=== PATIENT | female | born 1955 | race Caucasian/White ===

== ENCOUNTER 2018-07-22 17:45 | Inpatient (IN) | payer MEDICARE, MEDICAID ==
--- NOTE | 2018-07-22 18:40 | ED Physician Chart ---
ED Chief Complaint/HPI - Patient Information Date Seen:: 07/22/18 Time Seen:: 18:00 Chief Complaint:: Depression History of Present Illness:: onset x 2 days of depression and lethargy; no report of SIs, trauma, H/, neck pain, chest pain, dyspnea, abd. pain, A/N/V/D/C, fever, chills, or urinary s/s Allergies:: Allergies Allergy/AdvReac Type Severity Reaction Status Date / Time erythromycin base Allergy Verified 07/22/18 18:18 Vitals:: Vital Signs - 8 hr 07/22/18 18:00 Temp 97 F HR 105 RR 18 BP 130/64 O2 Sat % 96 Historian:: Patient Review:: Nurse's Note Reviewed, Old Chart Reviewed <Tomi Lindo - Last Filed: 07/22/18 18:33> - Patient Information Allergies:: Allergies Allergy/AdvReac Type Severity Reaction Status Date / Time erythromycin base Allergy Verified 07/22/18 18:18 Vitals:: Vital Signs - 8 hr 07/22/18 18:00 Temp 97 F HR 105 RR 18 BP 130/64 O2 Sat % 96 <Jennifer Canseco - Last Filed: 07/23/18 08:41> ED Review of Systems - Review of Systems General/Constitutional: No fever, No chills, No weight loss, No weakness, No diaphoresis, No edema, No loss of appetite Skin: No skin lesions, No rash, No bruising Head: No headache, No light-headedness Eyes: No loss of vision, No pain, No diplopia ENT: No earache, No nasal drainage, No sore throat, No tinnitus Neck: No neck pain, No swelling, No thyromegaly, No stiffness, No mass noted Cardio Vascular: No chest pain, No palpitations, No PND, No orthopnea, No edema Pulmonary: No SOB, No cough, No sputum, No wheezing GI: No nausea, No vomiting, No diarrhea, No pain, No melena, No hematochezia, No constipation, No hematemesis G/U: No dysuria, No frequency, No hematuria, No nacturia 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 discharge, No abnormal vaginal bleed, No contraction Musculoskeletal: No bone or joint pain, No back pain, No muscle pain Endocrine: No polyuria, No polydipsia Psychiatric: Prior psych history, Depression, No anxiety, No suicidal ideation, No homicidal ideation, No auditory hallucination, No visual hallucination Hematopoietic: No bruising, No lymphadenopathy Allergic/Immuno: No urticaria, No angioedema Neurological: No syncope, No focal symptoms, No weakness, No paresthesia, No headache, No seizure, No dizziness, No confusion, No vertigo <Tomi Lindo - Last Filed: 07/22/18 18:33> ED Past Medical History - Past Medical History Obtainable: Yes Past Medical History: HTN Family History: HTN Social History: Non Smoker, No Alcohol, No Drug Use, Surgical History: None Psychiatricy History: Depression Medication: Reviewed <LindsayTomi ann - Last Filed: 07/22/18 18:33> Family Medical History - Family Member Mother History Unknown: Yes <HarleenJennifer - Last Filed: 07/23/18 08:41> ED Physical Exam - Physical Examination General/Constitutional: Awake, Well-developed, well-nourished, Alert, No distress, GCS 15, Non-toxic appearing, Ambulatory Head: Atraumatic Eyes: Lids, conjuctiva normal, PERRL, EOMI Skin: Nl inspection, No rash, No skin lesions, No ecchymosis, Well hydrated, No lymphadenopathy ENMT: External ears, nose nl, TM canals nl, Nasal exam nl, Lips, teeth, gums nl , Oropharynx nl, Tonsils nl Neck: Nontender, Full ROM w/o pain, No JVD, No nuchal rigidity, No bruit, No mass, No stridor Respiratory: Nl effort/Exclusion, Clear to Auscultation, No Wheeze/Rhonchi/Rales Cardio Vascular: RRR, No murmur, gallop, rubs, NL S1 S2, Carotid/Femoral/Distal pulses equal bilaterally GI: No tenderness/rebounding/guarding, No organomegaly, No hernia, Normal BS's, Nondistended, No mass/bruits, No McBurney tenderness : No CVA tenderness Extremities: No tenderness or effusion, Full ROM, normal strength in all extremities, No edema, Normal digits & nails Neuro/Psych: Alert/oriented, DTR's symmetric, Normal sensory exam, Normal motor strength, Judgement/insight normal, Mood normal, Normal gait, No focal deficits Other Neuro/Psych comments:: MSE: + Psychomotor Retardation; no SIs; Mood/Affect: Labile Misc: Normal back, No paraspinal tenderness <Tomi Lindo - Last Filed: 07/22/18 18:33> ED Labs/Radiology/EKG Results - Lab Results Results: Laboratory Tests 07/22/18 07/22/18 07/22/18 17:10 17:10 17:10 WBC 9.1 RBC 4.81 Hgb 14.7 Hct 44.1 MCV 91.7 MCH 30.5 MCHC Differential 33.3 RDW 13.9 Plt Count 237 MPV 10.4 Neutrophils % 61.5 Lymphocytes % 27.6 Monocytes % 7.3 Eosinophils % 2.6 Basophils % 1.0 Sodium 135 L Potassium 4.2 Chloride 99 Carbon Dioxide 23.8 Anion Gap 16.4 H BUN 19 Creatinine 0.8 Est GFR ( Amer) > 60.0 Est GFR (Non-Af Amer) > 60.0 BUN/Creatinine Ratio 23.8 Glucose 173 H Calcium 9.0 Total Bilirubin 0.7 AST 14 ALT 7 Alkaline Phosphatase 117 H Troponin I 0.01 Total Protein 6.9 Albumin 3.5 L Globulin 3.4 Albumin/Globulin Ratio 1.0 Triglycerides 161 H Cholesterol 206 H LDL Cholesterol Direct 133 HDL Cholesterol 65 Salicylates < 25.0 L Acetaminophen < 10.0 L Ethyl Alcohol < 10 <Jennifer Canseco - Last Filed: 07/23/18 08:41> ED Septic Shock - . Is Septic Shock (SBP<90, OR Lactate>4 mmol\L) present?: No - <6hrs of presentation: Vital Signs: Vital Signs - 8 hr 07/22/18 18:00 Temp 97 F HR 105 RR 18 BP 130/64 O2 Sat % 96 <Tomi Lindo - Last Filed: 07/22/18 18:33> - . Is Septic Shock (SBP<90, OR Lactate>4 mmol\L) present?: No - <6hrs of presentation: Vital Signs: Vital Signs - 8 hr 07/22/18 18:00 Temp 97 F HR 105 RR 18 BP 130/64 O2 Sat % 96 <Jennifer Canseco - Last Filed: 07/23/18 08:41> ED Reassessment (Disposition) - Reassessment Reassessment Condition:: Improved - Diagnosis Diagnosis:: Depression; Medical Clearance <Tomi Lindo - Last Filed: 07/22/18 18:33> - Reassessment Reassessment:: Admit to [facility] for further evaluation and management. Reassessment Condition:: Improved - Patient Disposition Discharge/Transfer:: [facility] w/in this hosp Admitting Medical Physician:: Allen Escobedo Admitting Psych Physician:: Esteban Escobar <Jennifer Canseco - Last Filed: 07/23/18 08:41>
[2018-07-22 19:25] LABS: % EOSINOPHILS 2.6 % (0.0-5.0); % LYMPHOCYTES 27.6 % (20.0-50.0); % MONOCYTES 7.3 % (2.0-10.0); % NEUTROPHILS 61.5 % (40.0-80.0); BASOPHILE ABSOLUTE 0.1 Th/cumm (0-0.2); EOSINOPHILE ABSOLUTE 0.2 Th/cmm (0.1-0.4); HEMATOCRIT 44.1 % (41.0-60); HEMOGLOBIN 14.7 gm/dL (12-16); LYMPHOCYTE ABSOLUTE 2.5 Th/cmm (1.5-3.0); MEAN CELL VOLUME 91.7 fl (81-100); MEAN CORPUSCULAR HEMOGLOBIN 30.5 pg (27.0-31.0); MEAN CORPUSCULAR HGB CONC 33.3 pg (28.0-36.0); MEAN PLATELET VOLUME 10.4 fl; MONOCYTE ABSOLUTE 0.7 Th/cmm (0.3-1.0); NEUTROPHILE ABSOLUTE 5.6 Th/cmm (1.8-8.0); PLATELET COUNT 237 Th/cmm (150-400); RED BLOOD COUNT 4.81 Mil/cmm (3.80-5.10); RED CELL DISTRIBUTION WIDTH 13.9 % (11.5-20.0); WHITE BLOOD COUNT 9.1 Th/cmm (4.8-10.8)
[2018-07-22 19:51] LABS: ACETAMINOPHEN < 10.0 ug/mL (10.0-30.0); ALBUMIN 3.5 gm/dL (3.7-5.3); ALKALINE PHOSPHATASE 117 U/L (34-104); ANION GAP 16.4 (7.0-16.0); BILIRUBIN,TOTAL 0.7 mg/dL (0.3-1.0); BUN - UREA NITROGEN 19 mg/dL (7-25); CARBON DIOXIDE 23.8 mEq/L (21.0-31.0); CHLORIDE 99 mEq/L (98-107); CHOLESTEROL 206 mg/dL (<200); CREATININE - SERUM 0.8 mg/dL (0.6-1.2); GFR AFRICAN-AMERICAN > 60.0 ml/min (>90); GFR NON AFRICAN-AMERICAN > 60.0 ml/min; GLUCOSE 173 mg/dL (70-105); HDL -HIGH DENSITY LIPOPROTEIN 65 mg/dL (23-92); POTASSIUM SERUM 4.2 mEq/L (3.5-5.1); SGOT 14 U/L (13-39); SGPT/ALT 7 U/L (7-52); SODIUM SERUM 135 mEq/L (136-145); TOTAL PROTEIN,SERUM 6.9 gm/dL (6.0-8.3); TRIGLYCERIDES 161 mg/dL (<150)
[2018-07-22 19:54] LABS: SALICYLATES (ASPIRIN) < 25.0 mg/L (30.0-100.0)
[2018-07-22] MEDS ORDERED: Maalox 30 mL Cup PO PRN (21:00)
[2018-07-22 22:22] VITALS: BP 113/63
[2018-07-22] MEDS ORDERED: LEUCOVORIN CALCIUM PO SCH (22:45)
[2018-07-22] MEDS ORDERED: ABATACEPT 125 MG SQ SCH (22:45)
[2018-07-23] MEDS: Hydrocodone/APAP 10 mg/325 mg Tab PO PRN ×2 (01:24→21:43)
--- NOTE | 2018-07-23 04:57 | Psychiatric Evaluation ---
DATE OF SERVICE: 07/22/2018 IDENTIFYING DATA: The patient is a 63-year-old resident of [facility]. Information obtained by directly interviewing the patient as well as reviewing the admission papers and they are reliable. JUSTIFICATION OF HOSPITALIZATION: The patient is admitted on a voluntary basis in view of her acute depression. CHIEF COMPLAINT: "I am depressed, but I don't know why I am here." HISTORY OF PRESENT ILLNESS: This is the first psychiatric hospitalization to [facility] for this patient who is reported to have been feeling depressed since the loss of pulse. The patient is reporting that she is not able to sleep, has been having poor coping skills and is feeling frustrated. The patient at this time is noted to be morbidly obese and is not able to move. The patient is also feeling extremely frustrated with this poor mobility. PAST PSYCHIATRIC HISTORY: Details are not known. MEDICAL HISTORY: Physical examination is requested to be done by Dr. Escobedo. SUBSTANCE ABUSE HISTORY: None. PHYSICAL OR SEXUAL ABUSE HISTORY: None. LEGAL PROBLEMS: None at this time. SOCIAL HISTORY: The patient is a resident of the detention facility. MENTAL STATUS EXAMINATION: The patient is a 63-year-old morbidly obese, superficially cooperative. Mood is noted to be depressed. Affect is constricted. Insight and judgment are noted to be very impaired. Impulse control is noted to be poor. Coping skills are noted to be poor. The patient is alert and oriented x 3. The patient did not presenting with any suicidal ideation, but the patient has feelings of helplessness and hopelessness. No psychotic symptoms are noted at this time. The patient is not that keen on being in here, but she states ____ see whether, however, she is going to get any better in here. DIAGNOSTIC IMPRESSION: AXIS I: Major depressive disorder, first episode and moderate. AXIS II: None. AXIS III: As per Dr. Escobedo. IMMEDIATE TREATMENT PLAN: The patient is going to be observed on inpatient unit providing supportive psychotherapy. The patient is going to be closely monitored and encouraged to participate in the groups. Once stabilized, the patient is going to be discharged. While in the hospital, the patient is going to be placed on the low dose of the antidepressant medication, Lexapro and the patient is going to be followed up. JOB# [id number]
--- NOTE | 2018-07-23 06:28 | History and Physical ---
History of Present Illness - HPI Chief Complaint: Psychosis HPI: 63 y/o female who presents to [facility] for 2 day onset of depression and was subsequently transferred to the ER for further evaluation and treatment. While in the ER patient had initial labwork which revealed the following WBC 9.1 H/H 14.7/44.1 plat 237K Na 135 K 4.2 Bun/Cr 19/0.8 glu 173 AST 14 ALT 7 Alk 117 Chol 206 tri 161 LDL 133 HDL 65 PMH HTN, depression Patient was subsequently admitted for further evaluation and treatment. Vital Signs: Last Vital Signs Temp 96.4 F 07/22/18 21:29 Pulse 85 07/22/18 21:29 Resp 19 07/22/18 21:29 BP 113/63 07/22/18 22:22 Pulse Ox 95 07/22/18 21:29 Past Medical History Cardiovascular: Report: HTN Pulmonary: Report: No Pertinent Hx NATIONAL EXPANSION RECRUITER: Report: No Pertinent Hx GI: Report: No Pertinent Hx Psych: Report: Depression Musculoskeletal: Report: No Pertinent Hx, No Pain Rheumatologic: Report: No pertinent Hx Infectious Disease: Report: No Pertinent Hx Renal/: Report: Chronic Renal Insuff Endocrine: Report: Diabetes Dermatology: Report: No Pertinent Hx Other History: gout - Past Surgical History Past Surgical History: No pertinent Hx Family Medical History - Family Member Mother History Unknown: Yes Ethnicity: Unknown Living Status: Unknown Hx Family Cancer: (unknown) Hx Family Coronary Artery Disease: (unknown) Hx Family Congestive Heart Failure: (unknown) Hx Family Hypertension: (unknown) Hx Family Stroke: (unknown) Hx Family Diabetes: (unknown) Hx Family Seizures: (unknown) Hx Family Dementia: (unknown) Hx Family AIDS: (unknown) Hx Family COPD: (unknown) Hx Family Hepatitis: (unknown) Hx Family Psychiatric Problems: (unknown) Hx Family Tuberculosis: (unknown) Social History Smoke: No Alcohol: None Drugs: None Lives: Skilled Nursing - Medications Home Medications: Home Medication Medication Instructions Recorded Type Abatacept [Orencia Clickject] 125 mg SQ QTHUR 07/22/18 History Allopurinol 1 mg PO BID 07/22/18 History Bisacodyl [Dulcolax 10 Mg Supp] 1 supp RC DAILY PRN 07/22/18 History Bumetanide 1 mg PO BID 07/22/18 History Calcium Carbonate 1 tab PO DAILY 07/22/18 History Cholecalciferol (Vit D3) [Vitamin 2 tab PO DAILY 07/22/18 History D3] Folic Acid 1 mg PO DAILY 07/22/18 History Hydrocodone/Acetaminophen 1 tab PO Q6HR PRN 07/22/18 History [Hydrocodone-Acetamin 10-325 mg] Insulin Glargine,Hum.rec.anlog 30 units SQ HS 07/22/18 History [Lantus Solostar] Leucovorin Calcium 1 tab PO QTHUR 07/22/18 History Magnesium Hydroxide [Milk of 30 ml PO DAILY 07/22/18 History Magnesia] Methotrexate [Methotrexate*] 6 tab PO QTHUR 07/22/18 History Metoclopramide HCl 1 tab PO DAILY 07/22/18 History Metoprolol Tartrate 25 mg PO BID 07/22/18 History Potassium Chloride 20 meq PO DAILY 07/22/18 History Sennosides A and B [Senna] 2 tab PO HS 07/22/18 History - Allergies Allergies/Adverse Reactions: Allergies Allergy/AdvReac Type Severity Reaction Status Date / Time erythromycin base Allergy Verified 07/22/18 18:18 Review of Systems - Review of Systems Constitutional: Report: No Significant Eyes: Report: No Significant ENT: Report: No Significant Respiratory: Report: No Significant Cardiovascular: Report: No Significant Gastrointestinal: Report: No Significant Genitourinary: Report: No Significant Musculoskeletal: Report: No Significant Skin: Report: No Significant Neurological: Report: Confusion - Lab Results All Lab Results last 24 hours: Laboratory Results - last 24 hr 07/22/18 07/22/18 07/22/18 17:10 17:10 17:10 WBC 9.1 RBC 4.81 Hgb 14.7 Hct 44.1 MCV 91.7 MCH 30.5 MCHC Differential 33.3 RDW 13.9 Plt Count 237 MPV 10.4 Neutrophils % 61.5 Lymphocytes % 27.6 Monocytes % 7.3 Eosinophils % 2.6 Basophils % 1.0 Sodium 135 L Potassium 4.2 Chloride 99 Carbon Dioxide 23.8 Anion Gap 16.4 H BUN 19 Creatinine 0.8 Est GFR ( Amer) > 60.0 Est GFR (Non-Af Amer) > 60.0 BUN/Creatinine Ratio 23.8 Glucose 173 H Calcium 9.0 Total Bilirubin 0.7 AST 14 ALT 7 Alkaline Phosphatase 117 H Troponin I 0.01 Total Protein 6.9 Albumin 3.5 L Globulin 3.4 Albumin/Globulin Ratio 1.0 Triglycerides 161 H Cholesterol 206 H LDL Cholesterol Direct 133 HDL Cholesterol 65 Salicylates < 25.0 L Acetaminophen < 10.0 L Ethyl Alcohol < 10 - Assessment Assessment: psychosis HTN DM gout - Plan Plan: admit to [facility] continue home meds sliding scale index
[2018-07-23] MEDS: INSULIN ASPART SLIDING SCALE 100 UNITS/ML UNIT SUBQ SCH ×4 (07:55→21:47)
[2018-07-23] MEDS: Magnesium Hydroxide (MOM) 30 mL UDC PO SCH (08:19)
[2018-07-23] MEDS: Multivitamin Tab PO SCH (08:23)
[2018-07-23] MEDS: Potassium Chloride 20 mEq ER Tab PO SCH (08:23)
--- NOTE | 2018-07-23 21:35 | Consultation ---
DATE OF CONSULTATION: 07/23/2018 REFERRING PHYSICIAN: Analia Skelton M.D. TYPE OF CONSULTATION: Psychology. HISTORY OF PRESENT ILLNESS: The patient is a 63-year-old female. The patient is a resident of [facility]. The following is by record review and by the patient's self report. The patient is being admitted due to acute depression. Upon interview, the patient states that she feels very depressed, but does not understand why she is being hospitalized. The staff at the patient's facility report that the patient had been complaining of feeling depressed and that there was a possible loss either of a family member or someone close to her. This needs further evaluation. The patient states that she feels frustrated. She denied any suicidal ideation, plan, or intention at the time of this clinical interview. PAST MEDICAL HISTORY: Please see history and physical by Dr. Escobedo. PAST PSYCHIATRIC HISTORY: Records are unavailable. Details are unknown. SUBSTANCE ABUSE HISTORY: The patient denied any history of alcohol, tobacco, or illicit drug use. PSYCHOSOCIAL HISTORY: The patient did not answer questions about occupational or educational history or evangelical affiliation. The patient denied any history of physical or sexual abuse. The patient denies any current legal problems. The patient did not answer the questions about family members or friends or others involved in her care. MENTAL STATUS EXAMINATION: The patient appears to be her stated age. The patient is morbidly obese. Attitude is superficially cooperative. Eye contact is poor. Speech is slow and delayed. Mood is depressed. Affect is constricted and mood congruent. Thought process shows to be depressogenic. The patient denied any auditory or visual hallucinations or delusions. There are no signs or symptoms of any psychotic process. The patient denied any suicidal ideation, plan, or intention. The patient's behavior has been poorly responsive to staff direction. Impulse control is inadequate. Concentration is fair to poor. Sensorium is alert and oriented to person and place. The patient did indicate feelings of helplessness and hopelessness. The patient's memory seems to be intact, but she did not participate in the assessment. The patient did not participate in the interpretation of proverbs. Insight is poor. Judgement is compromised. DIAGNOSTIC IMPRESSION: AXIS I: Major depressive disorder, first episode, moderate. AXIS II: None. AXIS III: Per Dr. Escobedo. TREATMENT PLAN: The patient has been seen by Dr. Skelton for psychiatric evaluation and for the management of the patient's psychotropic medications. We will provide supportive psychotherapy to include cognitive behavioral therapy to reduce the patient's depression. We will encourage the patient to disclose and verbalize her concerns. We will encourage the patient to verbally contract for safety. We will provide motivational enhancement for compliance with care as well as coping strategies for phase of life issues. We will provide bereavement therapy if this intervention is appropriate and needed. Thank you, Dr. Skelton, for this consult and the opportunity to participate in this patient's care. JOB# [id number] KADI
[2018-07-23] MEDS: Insulin Detemir 100 units/mL 10mL Vial SUBQ SCH (21:45)
--- NOTE | 2018-07-24 02:30 | Progress Notes ---
DATE: 07/23/2018 SUBJECTIVE: Staff was spoken to. The patient is interviewed. Mood is noted to be irritable. Affect is constricted. The patient is stating that she is frustrated. The patient is stating that she was hoping that she is going to be getting to the hospital, but on the other hand, she had to bring in the Psychiatric Unit. The patient coping skills are noted to be very poor. The patient is stating that she is fully aware that she is overweight and she states that she needs some therapy and she needs to be given a shower and the patient has claiming that she has been getting the proper care at the facility where she has been and then she is insisting that we need to get the patient back to the facility rather than keeping her in a Psychiatric Unit. The patient is stating that she is no need for her to be in here. ASSESSMENT: The patient is getting easily irritable, angry. PLAN: To continue the patient with the supportive therapy and followup. [facility]# [id number]
--- NOTE | 2018-07-24 06:31 | General Progress Note ---
Subjective - Review of Systems Service Date: 07/24/18 Subjective: Patient is awake, alert, no acute distress VS T 98.2 P 94 BP 128/65 R 20 Objective - Results Result Diagrams: 07/22/18 17:10 07/22/18 17:10 Recent Labs: Laboratory Last Values WBC 9.1 Th/cmm (4.8-10.8) 07/22/18 17:10 RBC 4.81 Mil/cmm (3.80-5.10) 07/22/18 17:10 Hgb 14.7 gm/dL (12-16) 07/22/18 17:10 Hct 44.1 % (41.0-60) 07/22/18 17:10 MCV 91.7 fl (81-100) 07/22/18 17:10 MCH 30.5 pg (27.0-31.0) 07/22/18 17:10 MCHC Differential 33.3 pg (28.0-36.0) 07/22/18 17:10 RDW 13.9 % (11.5-20.0) 07/22/18 17:10 Plt Count 237 Th/cmm (150-400) 07/22/18 17:10 MPV 10.4 fl 07/22/18 17:10 Neutrophils % 61.5 % (40.0-80.0) 07/22/18 17:10 Lymphocytes % 27.6 % (20.0-50.0) 07/22/18 17:10 Monocytes % 7.3 % (2.0-10.0) 07/22/18 17:10 Eosinophils % 2.6 % (0.0-5.0) 07/22/18 17:10 Basophils % 1.0 % (0.0-2.0) 07/22/18 17:10 Sodium 135 mEq/L (136-145) L 07/22/18 17:10 Potassium 4.2 mEq/L (3.5-5.1) 07/22/18 17:10 Chloride 99 mEq/L (98-107) 07/22/18 17:10 Carbon Dioxide 23.8 mEq/L (21.0-31.0) 07/22/18 17:10 Anion Gap 16.4 (7.0-16.0) H 07/22/18 17:10 BUN 19 mg/dL (7-25) 07/22/18 17:10 Creatinine 0.8 mg/dL (0.6-1.2) 07/22/18 17:10 Est GFR ( Amer) > 60.0 ml/min (>90) 07/22/18 17:10 Est GFR (Non-Af Amer) > 60.0 ml/min 07/22/18 17:10 BUN/Creatinine Ratio 23.8 07/22/18 17:10 Glucose 173 mg/dL (70-105) H 07/22/18 17:10 POC Glucose 251 MG/DL (70 - 105) H 07/23/18 20:10 Uric Acid 5.6 mg/dL (2.3-6.6) 07/23/18 08:00 Calcium 9.0 mg/dL (8.6-10.3) 07/22/18 17:10 Total Bilirubin 0.7 mg/dL (0.3-1.0) 07/22/18 17:10 AST 14 U/L (13-39) 07/22/18 17:10 ALT 7 U/L (7-52) 07/22/18 17:10 Alkaline Phosphatase 117 U/L (34-104) H 07/22/18 17:10 Troponin I 0.01 ng/mL (0.01-0.05) 07/22/18 17:10 Total Protein 6.9 gm/dL (6.0-8.3) 07/22/18 17:10 Albumin 3.5 gm/dL (3.7-5.3) L 07/22/18 17:10 Globulin 3.4 gm/dL 07/22/18 17:10 Albumin/Globulin Ratio 1.0 (1.0-1.8) 07/22/18 17:10 Triglycerides 161 mg/dL (<150) H 07/22/18 17:10 Cholesterol 206 mg/dL (<200) H 07/22/18 17:10 LDL Cholesterol Direct 133 mg/dL (75-193) 07/22/18 17:10 HDL Cholesterol 65 mg/dL (23-92) 07/22/18 17:10 TSH 4.22 uIU/ml (0.34-5.60) 07/23/18 08:00 Salicylates < 25.0 mg/L (30.0-100.0) L 07/22/18 17:10 Acetaminophen < 10.0 ug/mL (10.0-30.0) L 07/22/18 17:10 Ethyl Alcohol < 10 mg/dL (0-10) 07/22/18 17:10 - Physical Exam Vitals and I&O: Vital Signs Temp 98.2 F 07/23/18 14:00 Pulse 94 07/23/18 14:00 Resp 20 07/23/18 14:00 BP 128/65 07/23/18 14:00 Pulse Ox 97 07/23/18 14:00 Intake & Output 07/23/18 07/23/18 07/24/18 06:59 18:59 06:59 Intake Total 120 Balance 120 Intake: Oral 120 Other: # Voids 3 Active Medications: Current Medications Acetaminophen (Tylenol) 650 mg PO Q4HR PRN PRN Reason: Mild Pain / Temp above 100 Stop: 09/20/18 20:59 Acetaminophen/Hydrocodone Bitart (Holden 10 Mg/325 Mg) 1 tab PO Q6HR PRN PRN Reason: Pain (Moderate) Stop: 09/20/18 22:33 Last Admin: 07/23/18 21:43 Dose: 1 tab Al Hydrox/Mg Hydrox/Simethicone (Maalox) 30 ml PO Q4HR PRN PRN Reason: GI DISTRESS Stop: 09/20/18 20:59 Allopurinol (Zyloprim) 100 mg PO BID [facility] Stop: 09/21/18 08:59 Last Admin: 07/23/18 16:43 Dose: 100 mg Bisacodyl (Dulcolax 10 Mg Supp) 10 mg RC DAILY PRN PRN Reason: Constipation Stop: 09/20/18 22:33 Bumetanide (Bumex) 1 mg PO BID [facility] Stop: 09/21/18 08:59 Last Admin: 07/23/18 16:43 Dose: 1 mg Calcium Carbonate (Os-Justin) 500 mg PO DAILY [facility] Stop: 09/21/18 08:59 Last Admin: 07/23/18 08:24 Dose: 500 mg Folic Acid (Folate) 1 mg PO DAILY [facility] Stop: 09/21/18 08:59 Last Admin: 07/23/18 08:23 Dose: 1 mg Insulin Aspart (Novolog Insulin Sliding Scale) 0 units SUBQ ACHS [facility]; Protocol Stop: 09/21/18 07:29 Last Admin: 07/23/18 21:47 Dose: 6 units Insulin Detemir (Levemir Insulin) 30 units SUBQ HS [facility] Stop: 09/21/18 20:59 Last Admin: 07/23/18 21:45 Dose: 30 units Lorazepam (Ativan) 0.5 mg PO BID PRN; Protocol PRN Reason: Agitation Stop: 09/20/18 21:11 Magnesium Hydroxide (Milk Of Magnesia) 30 ml PO DAILY [facility] Stop: 09/21/18 08:59 Last Admin: 07/23/18 08:19 Dose: 30 ml Methotrexate (Methotrexate) 15 mg PO QTHUR [facility]; Protocol Stop: 09/22/18 08:59 Metoclopramide HCl (Reglan) 10 mg PO DAILY [facility] Stop: 09/21/18 08:59 Last Admin: 07/23/18 08:23 Dose: 10 mg Metoprolol Tartrate (Lopressor) 25 mg PO BID [facility] Stop: 09/21/18 08:59 Last Admin: 07/23/18 16:44 Dose: Not Given Miscellaneous (Abatacept [Orencia Clickject]) 125 mg SQ QTHUR [facility] Stop: 09/20/18 22:44 Miscellaneous (Leucovorin Calcium [Leucovorin Calcium]) 1 tab PO QTHUR [facility] Stop: 09/20/18 22:44 Multivitamins/Vitamin C (Theragran) 1 tab PO DAILY [facility] Stop: 09/21/18 08:59 Last Admin: 07/23/18 08:23 Dose: 1 tab Potassium Chloride (Klor-Con) 20 meq PO DAILY [facility] Stop: 09/21/18 08:59 Last Admin: 07/23/18 08:23 Dose: 20 meq Senna (Senna) 8.6 mg PO HS [facility] Stop: 09/21/18 20:59 Last Admin: 07/23/18 21:42 Dose: 8.6 mg Vitamin D (Vitamin D3) 2,000 iu PO DAILY [facility] Stop: 09/21/18 08:59 Zolpidem Tartrate (Ambien) 5 mg PO HS PRN PRN Reason: Insomnia Stop: 09/20/18 21:12 General: Alert, No acute distress HEENT: Atraumatic, PERRLA, EOMI Neck: Supple Cardiovascular: Regular rate, Normal S1, Normal S2 Lungs: Clear to auscultation Abdomen: Bowel sounds Extremities: no Clubbing, no Cyanosis, no Edema Assessment/Plan - Assessment Assessment: psychosis HTN DM gout CKD 3 RA CHF - Plan Plan: admit to [facility] continue home meds sliding scale index
[2018-07-24] MEDS: INSULIN ASPART SLIDING SCALE 100 UNITS/ML UNIT SUBQ SCH ×4 (06:57→20:56)
[2018-07-24] MEDS: Vitamin D3 2,000 IU SGL PO SCH (09:10)
[2018-07-24] MEDS: Potassium Chloride 20 mEq ER Tab PO SCH (09:10)
[2018-07-24] MEDS: Multivitamin Tab PO SCH (09:10)
[2018-07-24] MEDS: Magnesium Hydroxide (MOM) 30 mL UDC PO SCH (09:11)
[2018-07-24] MEDS: Hydrocodone/APAP 10 mg/325 mg Tab PO PRN (13:23)
[2018-07-24] MEDS: Insulin Detemir 100 units/mL 10mL Vial SUBQ SCH (20:56)
--- NOTE | 2018-07-25 02:31 | Progress Notes ---
DATE: 07/24/2018 SUBJECTIVE: Staff was spoken to. The patient is interviewed. Mood is noted to be depressed. Affect is constricted. The patient is getting frustrated. The patient is stating that she could not figure it out why she has to be here in this hospital and when I mentioned to her that she is going to go to the hospital, she was expecting to go to a medical hospital and she states that she does not belong in the Psychiatric Unit because she is not getting any help in here. The patient is getting easily frustrated at this time. No side effects to any of the medications are noted. In view of the patient's poor coping skills, it is decided to add low dose of the Lexapro to see if it is going to be helping the patient to cope with the stress at this time. ASSESSMENT: The patient is getting easily frustrated. PLAN: To add the patient with 5 mg of the Lexapro and encouraged the patient to verbalize the concerns rather than to act out. JOB# [id number]
--- NOTE | 2018-07-25 06:02 | General Progress Note ---
Subjective - Review of Systems Service Date: 07/25/18 Subjective: Patient is awake, alert, no acute distress VS T 98.2 P 87 BP 111/53 R 18 Objective - Results Result Diagrams: 07/22/18 17:10 07/22/18 17:10 Recent Labs: Laboratory Last Values WBC 9.1 Th/cmm (4.8-10.8) 07/22/18 17:10 RBC 4.81 Mil/cmm (3.80-5.10) 07/22/18 17:10 Hgb 14.7 gm/dL (12-16) 07/22/18 17:10 Hct 44.1 % (41.0-60) 07/22/18 17:10 MCV 91.7 fl (81-100) 07/22/18 17:10 MCH 30.5 pg (27.0-31.0) 07/22/18 17:10 MCHC Differential 33.3 pg (28.0-36.0) 07/22/18 17:10 RDW 13.9 % (11.5-20.0) 07/22/18 17:10 Plt Count 237 Th/cmm (150-400) 07/22/18 17:10 MPV 10.4 fl 07/22/18 17:10 Neutrophils % 61.5 % (40.0-80.0) 07/22/18 17:10 Lymphocytes % 27.6 % (20.0-50.0) 07/22/18 17:10 Monocytes % 7.3 % (2.0-10.0) 07/22/18 17:10 Eosinophils % 2.6 % (0.0-5.0) 07/22/18 17:10 Basophils % 1.0 % (0.0-2.0) 07/22/18 17:10 Sodium 135 mEq/L (136-145) L 07/22/18 17:10 Potassium 4.2 mEq/L (3.5-5.1) 07/22/18 17:10 Chloride 99 mEq/L (98-107) 07/22/18 17:10 Carbon Dioxide 23.8 mEq/L (21.0-31.0) 07/22/18 17:10 Anion Gap 16.4 (7.0-16.0) H 07/22/18 17:10 BUN 19 mg/dL (7-25) 07/22/18 17:10 Creatinine 0.8 mg/dL (0.6-1.2) 07/22/18 17:10 Est GFR ( Amer) > 60.0 ml/min (>90) 07/22/18 17:10 Est GFR (Non-Af Amer) > 60.0 ml/min 07/22/18 17:10 BUN/Creatinine Ratio 23.8 07/22/18 17:10 Glucose 173 mg/dL (70-105) H 07/22/18 17:10 POC Glucose 210 MG/DL (70 - 105) H 07/24/18 20:05 Uric Acid 5.6 mg/dL (2.3-6.6) 07/23/18 08:00 Calcium 9.0 mg/dL (8.6-10.3) 07/22/18 17:10 Total Bilirubin 0.7 mg/dL (0.3-1.0) 07/22/18 17:10 AST 14 U/L (13-39) 07/22/18 17:10 ALT 7 U/L (7-52) 07/22/18 17:10 Alkaline Phosphatase 117 U/L (34-104) H 07/22/18 17:10 Troponin I 0.01 ng/mL (0.01-0.05) 07/22/18 17:10 Total Protein 6.9 gm/dL (6.0-8.3) 07/22/18 17:10 Albumin 3.5 gm/dL (3.7-5.3) L 07/22/18 17:10 Globulin 3.4 gm/dL 07/22/18 17:10 Albumin/Globulin Ratio 1.0 (1.0-1.8) 07/22/18 17:10 Triglycerides 161 mg/dL (<150) H 07/22/18 17:10 Cholesterol 206 mg/dL (<200) H 07/22/18 17:10 LDL Cholesterol Direct 133 mg/dL (75-193) 07/22/18 17:10 HDL Cholesterol 65 mg/dL (23-92) 07/22/18 17:10 TSH 4.22 uIU/ml (0.34-5.60) 07/23/18 08:00 Salicylates < 25.0 mg/L (30.0-100.0) L 07/22/18 17:10 Acetaminophen < 10.0 ug/mL (10.0-30.0) L 07/22/18 17:10 Ethyl Alcohol < 10 mg/dL (0-10) 07/22/18 17:10 - Physical Exam Vitals and I&O: Vital Signs Temp 98.2 F 07/24/18 20:44 Pulse 87 07/24/18 20:44 Resp 18 07/24/18 20:44 BP 111/53 07/24/18 20:44 Pulse Ox 94 07/24/18 20:44 Intake & Output 07/24/18 07/24/18 07/25/18 06:59 18:59 06:59 Intake Total 120 240 Output Total 2 Balance 120 238 Intake: Oral 120 240 Output: Stool 1 Urine/Stool Mix 1 Other: # Voids 3 1 Active Medications: Current Medications Acetaminophen (Tylenol) 650 mg PO Q4HR PRN PRN Reason: Mild Pain / Temp above 100 Stop: 09/20/18 20:59 Acetaminophen/Hydrocodone Bitart ([place] 10 Mg/325 Mg) 1 tab PO Q6HR PRN PRN Reason: Pain (Moderate) Stop: 09/20/18 22:33 Last Admin: 07/24/18 13:23 Dose: 1 tab Al Hydrox/Mg Hydrox/Simethicone (Maalox) 30 ml PO Q4HR PRN PRN Reason: GI DISTRESS Stop: 09/20/18 20:59 Allopurinol (Zyloprim) 100 mg PO BID [facility] Stop: 09/21/18 08:59 Last Admin: 07/24/18 17:35 Dose: 100 mg Bisacodyl (Dulcolax 10 Mg Supp) 10 mg RC DAILY PRN PRN Reason: Constipation Stop: 09/20/18 22:33 Bumetanide (Bumex) 1 mg PO BID [facility] Stop: 09/21/18 08:59 Last Admin: 07/24/18 17:34 Dose: 1 mg Calcium Carbonate (Os-Justin) 500 mg PO DAILY [facility] Stop: 09/21/18 08:59 Last Admin: 07/24/18 09:10 Dose: 500 mg Escitalopram Oxalate (Lexapro) 5 mg PO DAILY [facility]; Protocol Stop: 09/23/18 08:59 Folic Acid (Folate) 1 mg PO DAILY [facility] Stop: 09/21/18 08:59 Last Admin: 07/24/18 09:09 Dose: 1 mg Insulin Aspart (Novolog Insulin Sliding Scale) 0 units SUBQ ACHS [facility]; Protocol Stop: 09/21/18 07:29 Last Admin: 07/24/18 20:56 Dose: 4 units Insulin Detemir (Levemir Insulin) 30 units SUBQ HS [facility] Stop: 09/21/18 20:59 Last Admin: 07/24/18 20:56 Dose: 30 units Lorazepam (Ativan) 0.5 mg PO BID PRN; Protocol PRN Reason: Agitation Stop: 09/20/18 21:11 Magnesium Hydroxide (Milk Of Magnesia) 30 ml PO DAILY [facility] Stop: 09/21/18 08:59 Last Admin: 07/24/18 09:11 Dose: 30 ml Methotrexate (Methotrexate) 15 mg PO QTHUR [facility]; Protocol Stop: 09/22/18 08:59 Last Admin: 07/24/18 09:13 Dose: Not Given Metoclopramide HCl (Reglan) 10 mg PO DAILY [facility] Stop: 09/21/18 08:59 Last Admin: 07/24/18 09:09 Dose: 10 mg Metoprolol Tartrate (Lopressor) 25 mg PO BID [facility] Stop: 09/21/18 08:59 Last Admin: 07/24/18 17:34 Dose: 25 mg Miscellaneous (Abatacept [Orencia Clickject]) 125 mg SQ QTHUR [facility] Stop: 09/20/18 22:44 Multivitamins/Vitamin C (Theragran) 1 tab PO DAILY [facility] Stop: 09/21/18 08:59 Last Admin: 07/24/18 09:10 Dose: 1 tab Mupirocin (Bactroban Oint) 1 appl NS BID [facility] Stop: 07/29/18 17:01 Potassium Chloride (Klor-Con) 20 meq PO DAILY [facility] Stop: 09/21/18 08:59 Last Admin: 07/24/18 09:10 Dose: 20 meq Senna (Senna) 8.6 mg PO HS [facility] Stop: 09/21/18 20:59 Last Admin: 07/24/18 20:50 Dose: 8.6 mg Vitamin D (Vitamin D3) 2,000 iu PO DAILY [facility] Stop: 09/21/18 08:59 Last Admin: 07/24/18 09:10 Dose: 2,000 iu Zolpidem Tartrate (Ambien) 5 mg PO HS PRN PRN Reason: Insomnia Stop: 09/20/18 21:12 General: Alert, No acute distress HEENT: Atraumatic, PERRLA, EOMI Neck: Supple Cardiovascular: Regular rate, Normal S1, Normal S2 Lungs: Clear to auscultation Abdomen: Bowel sounds Extremities: no Clubbing, no Cyanosis, no Edema Assessment/Plan - Assessment Assessment: psychosis HTN DM gout CKD 3 RA CHF - Plan Plan: admit to [facility] continue home meds sliding scale index
[2018-07-25] MEDS: Hydrocodone/APAP 10 mg/325 mg Tab PO PRN ×2 (06:15→20:56)
[2018-07-25] MEDS ORDERED: Escitalopram Oxalate 5 mg Tab PO SCH (09:00)
[2018-07-25] MEDS: INSULIN ASPART SLIDING SCALE 100 UNITS/ML UNIT SUBQ SCH ×4 (09:02→20:48)
[2018-07-25] MEDS: Potassium Chloride 20 mEq ER Tab PO SCH (09:19)
[2018-07-25] MEDS: Multivitamin Tab PO SCH (09:19)
[2018-07-25] MEDS: Vitamin D3 2,000 IU SGL PO SCH (09:19)
[2018-07-25] MEDS: Magnesium Hydroxide (MOM) 30 mL UDC PO SCH (09:45)
[2018-07-25] MEDS: Insulin Detemir 100 units/mL 10mL Vial SUBQ SCH (20:48)
[2018-07-26] MEDS: Hydrocodone/APAP 10 mg/325 mg Tab PO PRN (03:20)
--- NOTE | 2018-07-26 06:14 | General Progress Note ---
Subjective - Review of Systems Service Date: 07/26/18 Subjective: Patient is awake, alert, no acute distress VS T 98.9 P 98 BP 129/85 R 20 Objective - Results Result Diagrams: 07/22/18 17:10 07/22/18 17:10 Recent Labs: Laboratory Last Values WBC 9.1 Th/cmm (4.8-10.8) 07/22/18 17:10 RBC 4.81 Mil/cmm (3.80-5.10) 07/22/18 17:10 Hgb 14.7 gm/dL (12-16) 07/22/18 17:10 Hct 44.1 % (41.0-60) 07/22/18 17:10 MCV 91.7 fl (81-100) 07/22/18 17:10 MCH 30.5 pg (27.0-31.0) 07/22/18 17:10 MCHC Differential 33.3 pg (28.0-36.0) 07/22/18 17:10 RDW 13.9 % (11.5-20.0) 07/22/18 17:10 Plt Count 237 Th/cmm (150-400) 07/22/18 17:10 MPV 10.4 fl 07/22/18 17:10 Neutrophils % 61.5 % (40.0-80.0) 07/22/18 17:10 Lymphocytes % 27.6 % (20.0-50.0) 07/22/18 17:10 Monocytes % 7.3 % (2.0-10.0) 07/22/18 17:10 Eosinophils % 2.6 % (0.0-5.0) 07/22/18 17:10 Basophils % 1.0 % (0.0-2.0) 07/22/18 17:10 Sodium 135 mEq/L (136-145) L 07/22/18 17:10 Potassium 4.2 mEq/L (3.5-5.1) 07/22/18 17:10 Chloride 99 mEq/L (98-107) 07/22/18 17:10 Carbon Dioxide 23.8 mEq/L (21.0-31.0) 07/22/18 17:10 Anion Gap 16.4 (7.0-16.0) H 07/22/18 17:10 BUN 19 mg/dL (7-25) 07/22/18 17:10 Creatinine 0.8 mg/dL (0.6-1.2) 07/22/18 17:10 Est GFR ( Amer) > 60.0 ml/min (>90) 07/22/18 17:10 Est GFR (Non-Af Amer) > 60.0 ml/min 07/22/18 17:10 BUN/Creatinine Ratio 23.8 07/22/18 17:10 Glucose 173 mg/dL (70-105) H 07/22/18 17:10 POC Glucose 227 MG/DL (70 - 105) H 07/25/18 19:35 Uric Acid 5.6 mg/dL (2.3-6.6) 07/23/18 08:00 Calcium 9.0 mg/dL (8.6-10.3) 07/22/18 17:10 Total Bilirubin 0.7 mg/dL (0.3-1.0) 07/22/18 17:10 AST 14 U/L (13-39) 07/22/18 17:10 ALT 7 U/L (7-52) 07/22/18 17:10 Alkaline Phosphatase 117 U/L (34-104) H 07/22/18 17:10 Troponin I 0.01 ng/mL (0.01-0.05) 07/22/18 17:10 Total Protein 6.9 gm/dL (6.0-8.3) 07/22/18 17:10 Albumin 3.5 gm/dL (3.7-5.3) L 07/22/18 17:10 Globulin 3.4 gm/dL 07/22/18 17:10 Albumin/Globulin Ratio 1.0 (1.0-1.8) 07/22/18 17:10 Triglycerides 161 mg/dL (<150) H 07/22/18 17:10 Cholesterol 206 mg/dL (<200) H 07/22/18 17:10 LDL Cholesterol Direct 133 mg/dL (75-193) 07/22/18 17:10 HDL Cholesterol 65 mg/dL (23-92) 07/22/18 17:10 TSH 4.22 uIU/ml (0.34-5.60) 07/23/18 08:00 Salicylates < 25.0 mg/L (30.0-100.0) L 07/22/18 17:10 Acetaminophen < 10.0 ug/mL (10.0-30.0) L 07/22/18 17:10 Ethyl Alcohol < 10 mg/dL (0-10) 07/22/18 17:10 RPR NONREACTIVE (NONREACTIVE) 07/23/18 08:00 - Physical Exam Vitals and I&O: Vital Signs Temp 98.4 F 07/25/18 21:02 Pulse 98 07/25/18 21:02 Resp 20 07/25/18 21:02 BP 129/85 07/25/18 21:02 Pulse Ox 93 07/25/18 21:02 Intake & Output 07/25/18 07/25/18 07/26/18 06:59 18:59 06:59 Intake Total 240 1000 240 Output Total 2 Balance 238 1000 240 Intake: Oral 240 1000 240 Output: Stool 1 Urine/Stool Mix 1 Other: # Voids 1 4 2 # Bowel Movements 0 Active Medications: Current Medications Acetaminophen (Tylenol) 650 mg PO Q4HR PRN PRN Reason: Mild Pain / Temp above 100 Stop: 09/20/18 20:59 Acetaminophen/Hydrocodone Bitart ([place] 10 Mg/325 Mg) 1 tab PO Q6HR PRN PRN Reason: Pain (Moderate) Stop: 09/20/18 22:33 Last Admin: 07/26/18 03:20 Dose: 1 tab Al Hydrox/Mg Hydrox/Simethicone (Maalox) 30 ml PO Q4HR PRN PRN Reason: GI DISTRESS Stop: 09/20/18 20:59 Allopurinol (Zyloprim) 100 mg PO BID [facility] Stop: 09/21/18 08:59 Last Admin: 07/25/18 17:16 Dose: 100 mg Benzonatate (Tessalon) 100 mg PO TID PRN PRN Reason: Cough Stop: 09/23/18 17:02 Bisacodyl (Dulcolax 10 Mg Supp) 10 mg RC DAILY PRN PRN Reason: Constipation Stop: 09/20/18 22:33 Bumetanide (Bumex) 1 mg PO BID [facility] Stop: 09/21/18 08:59 Last Admin: 07/25/18 17:15 Dose: 1 mg Calcium Carbonate (Os-Felice) 500 mg PO DAILY [facility] Stop: 09/21/18 08:59 Last Admin: 07/25/18 09:19 Dose: 500 mg Cephalexin Monohydrate (Keflex) 500 mg PO QID [facility] Stop: 09/23/18 20:59 Last Admin: 07/25/18 20:51 Dose: 500 mg Folic Acid (Folate) 1 mg PO DAILY [facility] Stop: 09/21/18 08:59 Last Admin: 07/25/18 09:19 Dose: 1 mg Insulin Aspart (Novolog Insulin Sliding Scale) 0 units SUBQ ACHS [facility]; Protocol Stop: 09/21/18 07:29 Last Admin: 07/25/18 20:48 Dose: 4 units Insulin Detemir (Levemir Insulin) 30 units SUBQ HS [facility] Stop: 09/21/18 20:59 Last Admin: 07/25/18 20:48 Dose: 30 units Lorazepam (Ativan) 0.5 mg PO BID [facility]; Protocol PRN Reason: Agitation Stop: 09/20/18 21:11 Magnesium Hydroxide (Milk Of Magnesia) 30 ml PO DAILY [facility] Stop: 09/21/18 08:59 Last Admin: 07/25/18 09:45 Dose: 30 ml Methotrexate (Methotrexate) 15 mg PO QTHUR [facility]; Protocol Stop: 09/22/18 08:59 Last Admin: 07/24/18 09:13 Dose: Not Given Metoclopramide HCl (Reglan) 10 mg PO DAILY [facility] Stop: 09/21/18 08:59 Last Admin: 07/25/18 09:19 Dose: 10 mg Metoprolol Tartrate (Lopressor) 25 mg PO BID [facility] Stop: 09/21/18 08:59 Last Admin: 07/25/18 17:33 Dose: Not Given Miscellaneous (Abatacept [Orencia Clickject]) 125 mg SQ QTHUR [facility] Stop: 09/20/18 22:44 Multivitamins/Vitamin C (Theragran) 1 tab PO DAILY [facility] Stop: 09/21/18 08:59 Last Admin: 07/25/18 09:19 Dose: 1 tab Mupirocin (Bactroban Oint) 1 appl NS BID [facility] Stop: 07/29/18 17:01 Last Admin: 07/25/18 17:34 Dose: Not Given Potassium Chloride (Klor-Con) 20 meq PO DAILY [facility] Stop: 09/21/18 08:59 Last Admin: 07/25/18 09:19 Dose: 20 meq Senna (Senna) 8.6 mg PO HS [facility] Stop: 09/21/18 20:59 Last Admin: 07/25/18 20:47 Dose: 8.6 mg Vitamin D (Vitamin D3) 2,000 iu PO DAILY [facility] Stop: 09/21/18 08:59 Last Admin: 07/25/18 09:19 Dose: 2,000 iu Zolpidem Tartrate (Ambien) 5 mg PO HS PRN PRN Reason: Insomnia Stop: 09/20/18 21:12 General: Alert, No acute distress HEENT: Atraumatic, PERRLA, EOMI Neck: Supple Cardiovascular: Regular rate, Normal S1, Normal S2 Lungs: Clear to auscultation Abdomen: Bowel sounds Extremities: no Clubbing, no Cyanosis, no Edema Assessment/Plan - Assessment Assessment: psychosis HTN DM gout - Plan Plan: admit to psychiatric continue home meds sliding scale index Nutritional Asmnt/Malnutr-PDOC - Dietary Evaluation Malnutrition Findings (Please click <Entered> for more info): Nutritional Asmnt/Malnutrition Start: 07/25/18 16: 45 Text: Status: Complete Freq: Protocol: Document 07/25/18 16:45 LCHENG (Rec: 07/25/18 16:45 [email or web address] [email or web address]) Nutritional Asmnt/Malnutrition Patient General Information Nutritional Screening Moderate Risk Diagnosis psychosis NOS Pertinent Medical Hx/Surgical Hx HTN, depression Subjective Information PT seen lying in bed, talking in phone. Talked with pt yesterday, food preference provided to RD. per EMR, PO intake 100%. Current Diet Order/ Nutrition Support MARIN, LCS Pertinent Medications os-felice, folate, novolog, levemir, reglan, theragran, kcl, senna, vit D3 Pertinent Labs 07/24-2 POC 68-215 2/ glucose 173, Na 135 Nutritional Hx/Data Height 1.57 m Height (Calculated Centimeters) 157.5 Current Weight (lbs) 151.046 kg Weight (Calculated Kilograms) 151.0 Weight (Calculated Grams) 904720.3 [place] Body Weight 110 Body Mass Index (BMI) 60.9 Weight Status Morbidly Obese GI Symptoms GI Symptoms None Last BM not indicated Difficult in: None Skin Integrity/Comment: dryness Current %PO Good (75-100%) Estimated Nutritional Goals BEE in Kcals: Adj wt of IBW Calories/Kcals/Kg 25-30 adj 73kg Kcals Calculated 3650-0941 Protein: Adj wt of IBW Protein g/k.8 Protein Calculated 58 Fluid: ml 1825-2190ml (1ml/kcal) Nutritional Problem 1. Problem Problem altered nutrition related labs Etiology hyperglycemia Signs/Symptoms: glucose 173, POC 68-215 Malnutrition Alert Is there a minimum of two criteria No selected? Query Text:Check all the applicable criteria. A minimum of two criteria are recommended for diagnosis of either severe or non-severe malnutrition. Malnutrition Related to Morbid Obesity Malnutrition related to morbid obesity No Intervention/Recommendation Comments 1. Continue with MARIN LCS diet as ordered. Verified with RN LCS diet zee no concentrated sweets. MD to adjust insulin regimen for optimal glycemic control 2. Monitor PO intake, wt, labs and skin integrity 3. F/U as low risk in 7 days Expected Outcomes/Goals Expected Outcomes/Goals 1. PO intake to meet at least 75% of nutritional needs. 2. Wt stability, skin to remain intact, labs to approach WNL.
[2018-07-26] MEDS: INSULIN ASPART SLIDING SCALE 100 UNITS/ML UNIT SUBQ SCH ×3 (06:39→16:55)
[2018-07-26] MEDS: Vitamin D3 2,000 IU SGL PO SCH (08:14)
[2018-07-26] MEDS: Magnesium Hydroxide (MOM) 30 mL UDC PO SCH (08:14)
[2018-07-26] MEDS: Multivitamin Tab PO SCH (08:17)
[2018-07-26] MEDS: Potassium Chloride 20 mEq ER Tab PO SCH (08:17)
--- NOTE | 2018-07-26 09:48 | Progress Notes ---
DATE: 07/25/2018 SUBJECTIVE: Staff was spoken to. The patient is interviewed. Mood is noted to be dysphoric. The patient is stating that she could not figure it out why she has to be in here. The patient is stating that she has been getting some help from the staff members. Insight and judgment are noted to be fair. The patient is stating that she is already on multiple medications and does not want to take any more of the antidepressant medications and hence the Lexapro has been discontinued. PLAN: To continue the patient with the supportive therapy and work with the social workers and then staff to get the patient back to the [facility]. JOB# [id number]
--- NOTE | 2018-07-26 14:35 | Progress Notes ---
DATE: 07/26/2018 SUBJECTIVE: Staff was spoken to. The patient is interviewed. Mood is noted to be less irritable. Affect is appropriate. The patient is not presenting with any threats to harm self or others. The patient is, however, getting frustrated, stating that she is better off at the facility rather than being in here because she does not have any way that she can be ____. She is able to move. The patient's ____ at this time are noted to be very poor. However, the patient is not presenting with any threats to harm self or others. PLAN: To discharge the patient today for followup on outpatient basis. JOB# [id number]
--- NOTE | 2018-07-28 20:45 | Progress Notes ---
DATE: 07/25/2018 PSYCHOLOGY PROGRESS NOTE SUBJECTIVE: The patient is seen and interviewed. Case is discussed with staff. The patient presents as less irritable. The patient seems more goal oriented. The patient continues to verbalize being frustrated. However, she is responding well to staff redirection and is able to verbalize her concerns versus acting out. OBJECTIVE: Mood is stabilizing. Affect is appropriate. Thought process shows to be more goal oriented. The patient denied any hallucinations or delusions. She denies any suicidal ideation, plan, or intention. The patient's behavior has become more compliant with her care and treatment. ASSESSMENT AND PLAN: The patient seems to be stabilizing. The patient will possibly discharge today. We provided coping strategies for phase of life issues. We provided remotivation for the patient to stay compliant with all aspects of her care and treatment and to follow through with staff direction at her facility. We encouraged the patient to continue to demonstrate emotional and self-regulation and verbalize her concerns versus acting out. The patient was able to verbally contract for safety for no self-harm and no harm to others. No followup is indicated. The patient is possibly discharging this afternoon. JOB# [id number]
== END 2018-07-26 18:00 | DRG 885 ==
LOC: ER 17:45 → GERO 20:50
DX: F32.1 Major depressive disorder, single episode, moderate (principal); N18.3 Chronic kidney disease, stage 3 (moderate); I13.0 Hypertensive heart and chronic kidney disease with heart failure and stage 1 through stage 4 chronic kidney disease, or unspecified chronic kidney disease; E11.22 Type 2 diabetes mellitus with diabetic chronic kidney disease; F29 Unspecified psychosis not due to a substance or known physiological condition; M10.9 Gout, unspecified; M06.9 Rheumatoid arthritis, unspecified; I50.9 Heart failure, unspecified; Z88.1 Allergy status to other antibiotic agents; Z79.4 Long term (current) use of insulin; Z82.49 Family history of ischemic heart disease and other diseases of the circulatory system
CPT/HCPCS: 36415-UA; 80053-TC; 80061-TC; 80320-TC; 80329-TC; 82948-90; 83036-90; 84443-TC; 84484-TC; 84550-TC; 85025-TC; 86592-TC; 93005; J1815; J8610; Z7610